=== PATIENT | female | born 1965 | race African-American/Black ===

== ENCOUNTER 2017-01-11 15:04 | Outpatient (CLI) | payer OTHER | END 2017-01-11 19:13 | disposition home or self-care (01) | LOC: SMA 15:04 | PROVIDERS: ATTEND Obstetrics & Gynecology Gynecology | DX: Z12.31 Encounter for screening mammogram for malignant neoplasm of breast (principal) | CPT/HCPCS: G0202 ==

== ENCOUNTER 2018-03-17 14:10 | Outpatient (CLI) | payer OTHER | END 2018-03-17 20:09 | disposition home or self-care (01) | LOC: SMA 14:10 | PROVIDERS: ATTEND Obstetrics & Gynecology Gynecology | DX: Z12.31 Encounter for screening mammogram for malignant neoplasm of breast (principal) | CPT/HCPCS: 77067 ==

== ENCOUNTER 2019-01-19 13:48 | Outpatient (CLI) | payer BC | END 2019-01-19 20:44 | disposition home or self-care (01) | LOC: SMA 13:48 | PROVIDERS: ATTEND Obstetrics & Gynecology Gynecology | DX: Z12.31 Encounter for screening mammogram for malignant neoplasm of breast (principal) | CPT/HCPCS: 77067 ==

== ENCOUNTER 2021-01-30 12:14 | Outpatient (CLI) | payer BC | END 2021-01-30 20:47 | disposition home or self-care (01) | LOC: SMA 12:14 | PROVIDERS: ATTEND Obstetrics & Gynecology Gynecology | DX: Z12.31 Encounter for screening mammogram for malignant neoplasm of breast (principal) | CPT/HCPCS: 77067 ==

== ENCOUNTER 2023-04-18 13:35 | Outpatient (CLI) | payer BC | END 2023-04-18 18:35 | disposition home or self-care (01) | LOC: SMA 13:35 | PROVIDERS: ATTEND Obstetrics & Gynecology Gynecology | DX: Z12.31 Encounter for screening mammogram for malignant neoplasm of breast (principal) | CPT/HCPCS: 77067 ==